=== PATIENT | female | born 2000 | race American Indian/Alaskan Native ===

== ENCOUNTER 2021-08-29 19:58 | Emergency (ER) | payer SELFPAY ==
[2021-08-29 20:17] VITALS: BP 139/82
[2021-08-29] MEDS ORDERED: IBUPROFEN 600 MG TAB PO ONE (23:26)
[2021-08-29] MEDS ORDERED: predniSONE 20 MG TAB PO ONE (23:26)
--- NOTE | 2021-08-29 23:32 | Emergency Department Report ---
ED Extremity Problem HPI - General Chief complaint: Extremity Injury, Lower Stated complaint: L FOOT PAIN Source: EMS Mode of arrival: Stretcher Limitations: No Limitations - History of Present Illness Initial comments: Patient is a 21-year-old -[place] female with no past medical history who presented to the ED with complaint of acute onset persistent nontraumatic dorsal left foot pain for the last 2 months. Patient states that the pain has been intermittent and especially worse in the morning when she wakes up. Patient states that her job entails being on her feet most of the hours at work on that this activity makes the pain in her left foot worse. Patient denies fall, traumatic injury, heavy lifting, low back pain, fever, chills, nausea and vomiting, numbness and tingling or weakness of the left foot. MD Complaint: extremity pain (left foot pain), joint swelling (left foot), joint paint (left foot) -: Gradual, month(s) (2) Location: left, lower extremity (foot) History of Same: Yes -: No myalgia, Yes arthralgia, No fever, No associated dyspnea, No associated chest pain Radiation: distal Severity scale (0 -10): 8 Quality: aching, sharp Consistency: constant Improves with: nothing Worsens with: weight bearing, walking, exertion, palpation Associated Symptoms: denies other symptoms, arthralgias (dorsal left foot pain). denies: chest pain, shortness of breath, fever, myalgias, rash - Related Data Previous Rx's Medication Instructions Recorded Last Taken Type Naproxen 500 mg PO Q12H PRN #30 tab 08/29/21 Unknown Rx predniSONE [Deltasone] 40 mg PO QDAY #12 tab 08/29/21 Unknown Rx Allergies Allergy/AdvReac Type Severity Reaction Status Date / Time No Known Allergies Allergy Verified 08/29/21 20:16 ED Review of Systems ROS: Stated complaint: L FOOT PAIN Other details as noted in HPI Constitutional: denies: chills, fever Eyes: denies: eye pain, eye discharge, vision change ENT: denies: ear pain, throat pain Respiratory: denies: cough, shortness of breath, wheezing Cardiovascular: denies: chest pain, palpitations Endocrine: no symptoms reported Gastrointestinal: denies: abdominal pain, nausea, diarrhea Genitourinary: denies: urgency, dysuria, discharge Musculoskeletal: arthralgia (dorsal left foot pain). denies: back pain, joint swelling Skin: denies: rash, lesions Neurological: denies: headache, weakness, paresthesias Psychiatric: denies: anxiety, depression Hematological/Lymphatic: denies: easy bleeding, easy bruising ED Past Medical Hx - Past Medical History Previous Medical History?: No - Surgical History Past Surgical History?: No - Medications Home Medications: Home Medications Medication Instructions Recorded Confirmed Last Taken Type Naproxen 500 mg PO Q12H PRN #30 tab 08/29/21 Unknown Rx predniSONE [Deltasone] 40 mg PO QDAY #12 tab 08/29/21 Unknown Rx ED Physical Exam - General Limitations: No Limitations General appearance: alert, in no apparent distress - Head Head exam: Present: atraumatic, normocephalic, normal inspection - Eye Eye exam: Present: normal appearance, PERRL, EOMI Pupils: Present: normal accommodation - ENT ENT exam: Present: normal exam, normal orophraynx, mucous membranes moist, TM's normal bilaterally, normal external ear exam - Neck Neck exam: Present: normal inspection, full ROM. Absent: tenderness - Respiratory Respiratory exam: Present: normal lung sounds bilaterally. Absent: respiratory distress, wheezes, rales, stridor, chest wall tenderness, accessory muscle use, decreased breath sounds - Cardiovascular Cardiovascular Exam: Present: regular rate, normal rhythm, normal heart sounds. Absent: systolic murmur, diastolic murmur, rubs, gallop - GI/Abdominal GI/Abdominal exam: Present: soft, normal bowel sounds. Absent: tenderness, guarding, rebound, hyperactive bowel sounds, hypoactive bowel sounds, organomegaly, mass - Extremities Exam Extremities exam: Present: normal inspection, full ROM, tenderness (Palpable dorsal left foot tenderness), normal capillary refill. Absent: pedal edema, joint swelling, calf tenderness - Back Exam Back exam: Present: normal inspection, full ROM. Absent: tenderness, CVA tenderness (R), CVA tenderness (L), muscle spasm, paraspinal tenderness - Neurological Exam Neurological exam: Present: alert, oriented X3, CN II-XII intact, normal gait, reflexes normal - Psychiatric Psychiatric exam: Present: normal affect, normal mood - Skin Skin exam: Present: warm, dry, intact, normal color. Absent: rash ED Course Vital Signs 08/29/21 20:16 Temperature 98.5 F Pulse Rate 75 Respiratory 16 Rate Blood Pressure 139/82 [Left] O2 Sat by Pulse 100 Oximetry ED Medical Decision Making - Medical Decision Making This is a 21-year-old -[place] female with no past medical history who presented to the ED with complaint of acute onset persistent nontraumatic dorsal left foot pain for the last 2 months. Patient states that the pain has been intermittent and especially worse in the morning when she wakes up. Patient states that her job entails being on her feet most of the hours at work on that this activity makes the pain in her left foot worse. In the ED, patient is alert and oriented x3 and is not in distress. Patient is hemodynamically stable. Patient was treated for pain in the ED and discharged home on pain medication. Patient symptoms are likely due to muscle strain or tendinitis of the left foot. Patient was advised to follow-up with her primary care physician in 7 to 10 days for evaluation return to the ED immediately if symptoms get worse. - Differential Diagnosis muscle strain; tendonitis; muscle spasm; Critical care attestation.: If time is entered above; I have spent that time in minutes in the direct care of this critically ill patient, excluding procedure time. ED Disposition Clinical Impression: Tendinitis of left foot Muscle strain of left foot Qualifiers: Encounter type: initial encounter Qualified Code(s): S96.912A - Strain of unspecified muscle and tendon at ankle and foot level, left foot, initial encounter Disposition: HOME / SELF CARE / HOMELESS Is pt being admited?: No Does the pt Need Aspirin: No Condition: Stable Instructions: Muscle Strain, [id number], Tendinitis, [id number] Additional Instructions: Take medication at home, drink plenty of fluids and follow-up with your primary care physician in 7 to 10 days for reevaluation. Return to the ED immediately if symptoms get worse. Prescriptions: predniSONE [Deltasone] 40 mg PO QDAY #12 tab Naproxen 500 mg PO Q12H PRN #30 tab PRN Reason: Pain , Severe (7-10) Referrals: [facility] [Provider Group] - 7-10 days Forms: Work/School Release Form(ED) Time of Disposition: 23:30 Print Language: KENYAN
== END 2021-08-30 00:22 | disposition home or self-care (01) ==
LOC: ED 19:58
DX: S96.912A Strain of unspecified muscle and tendon at ankle and foot level, left foot, initial encounter (principal); M65.272 Calcific tendinitis, left ankle and foot; X58.XXXA Exposure to other specified factors, initial encounter; Y93.89 Activity, other specified; Y92.89 Other specified places as the place of occurrence of the external cause; Y99.8 Other external cause status
CPT/HCPCS: 99283; J7512